=== PATIENT | female | born 1945 | race Caucasian/White ===

== ENCOUNTER 2016-11-25 17:22 | Emergency (ER) | payer MEDICARE ==
[~2016-11-25] VITALS: Ht 172.7 cm; Wt 83.9 kg
[~2016-11-25 17:22] MED LIST: ATACAND HCT 321 EAC1 PO; CYCLOBENZAPRINE10 MG PO; LEVOXYL150 MCG PO; NIACIN ER1000 MG PO; NORVASC10 MG PO
[2016-11-25] MEDS ORDERED: ASPIR 8181 MG PO (17:33)
[2016-11-25] MEDS ORDERED: NORCO 5-325 TA1 EACH PO (18:57)
== END 2016-11-25 19:07 | disposition home or self-care (01) ==
LOC: ED 17:22
DX: S92.311A Displaced fracture of first metatarsal bone, right foot, initial encounter for closed fracture (principal); I10 Essential (primary) hypertension; E03.9 Hypothyroidism, unspecified; X58.XXXA Exposure to other specified factors, initial encounter; Z90.710 Acquired absence of both cervix and uterus; Z79.82 Long term (current) use of aspirin; Z79.899 Other long term (current) drug therapy; Z88.5 Allergy status to narcotic agent
CPT/HCPCS: 73630; 99283